=== PATIENT | female | born 1980 ===

== ENCOUNTER 2023-04-13 07:14 | Inpatient (IN) | payer OTHER ==
[~2023-04-13] VITALS: Ht 160 cm; Wt 66.2 kg
[2023-04-14] MEDS ORDERED: KETO10TA2 PO (08:59)
[2023-04-14] MEDS ORDERED: ACETAMINOPHEN-1 EAC2 PO (09:02)
[2023-04-14] MEDS ORDERED: PEPCID AC20 MG PO (09:05)
== END 2023-04-14 11:49 | disposition home or self-care (01) | DRG 743 ==
LOC: CIR.AMB 07:14 → O/R 12:08 → OB/GYN 13:25
PROVIDERS: ADMIT Obstetrics & Gynecology; ATTEND Obstetrics & Gynecology
PROC: 0UT7FZZ Resection of Bilateral Fallopian Tubes, Via Natural or Artificial Opening With Percutaneous Endoscopic Assistance (ICD-10-PCS; 2023-04-13)
PROC: 0DNN4ZZ Release Sigmoid Colon, Percutaneous Endoscopic Approach (ICD-10-PCS; 2023-04-13)
PROC: 0TJB8ZZ Inspection of Bladder, Via Natural or Artificial Opening Endoscopic (ICD-10-PCS; 2023-04-13)
PROC: 0UT9FZZ Resection of Uterus, Via Natural or Artificial Opening With Percutaneous Endoscopic Assistance (ICD-10-PCS; principal; 2023-04-13 10:30)
DX: D25.1 Intramural leiomyoma of uterus (principal); D25.2 Subserosal leiomyoma of uterus; Z20.822 Contact with and (suspected) exposure to COVID-19